=== PATIENT | male | born 1995 | race Caucasian/White ===

== ENCOUNTER 2020-11-16 16:12 | Emergency (ER) | payer MEDICAID ==
--- NOTE | 2020-11-16 16:30 | NUR ---
call x1 not in lobby
--- NOTE | 2020-11-16 16:46 | NUR ---
call x2 not in lobby as
--- NOTE | 2020-11-16 17:08 | NUR ---
called x3 nil. as
== END 2020-11-16 17:24 | disposition left against medical advice (07) ==
LOC: ED 17:22
DX: M79.604 Pain in right leg (principal); M79.605 Pain in left leg; L98.9 Disorder of the skin and subcutaneous tissue, unspecified; Z53.21 Procedure and treatment not carried out due to patient leaving prior to being seen by health care provider

== ENCOUNTER 2020-11-16 18:19 | Emergency (ER) | payer SELFPAY ==
[~2020-11-16] VITALS: Ht 182.9 cm; Wt 75.6 kg
[2020-11-16 20:14] VITALS: BP 125/73
== END 2020-11-16 20:16 | disposition home or self-care (01) ==
LOC: ED 20:14
DX: L03.115 Cellulitis of right lower limb (principal); L03.116 Cellulitis of left lower limb
CPT/HCPCS: 99283